=== PATIENT | male | born 1955 ===

== ENCOUNTER 2020-01-31 04:25 | Day surgery (SDC) | payer OTHER ==
[2020-01-30 10:33] VITALS: BMI 44.9
--- OUTSIDE RECORDS SUMMARY | 2020-01-31 04:29 | XMS ---
:1955 Author Organization [facility] Care Team Providers Name Role Phone Manan Colbert MD Unavailable Unavailable Darius Du MD Unavailable Unavailable Re-disclosure Warning The records that you are about to access may contain information from federally- assisted alcohol or drug abuse programs. If such information is present, then the following federally mandated warning applies: This information has been disclosed to you from records protected by federal confidentiality rules (42 CFR part 2). The federal rules prohibit you from making any further disclosure of this information unless further disclosure is expressly permitted by the written consent of the person to whom it pertains or as otherwise permitted by 42 CFR part 2. A general authorization for the release of medical or other information is NOT sufficient for this purpose. The Federal rules restrict any use of the information to criminally investigate or prosecute any alcohol or drug abuse patient.The records that you are about to access may contain highly sensitive health information, the redisclosure of which is protected by Article 27-F of the [facility] Public Health law. If you continue you may haveaccess to information: Regarding HIV / AIDS; Provided by facilities licensed or operated by the [facility] Office of Mental Health; or Provided by the [facility] Office for People With Developmental Disabilities. If such information is present, then the following [facility] mandated warning applies: This information has been disclosed to you from confidential records which are protected by state law. State law prohibits you from making any further disclosure of this information without the specific written consent of the person to whom it pertains, or as otherwise permitted by law. Any unauthorized further disclosure in violation of state law may result in a fine or penitentiary sentence or both. A general authorization for the release of medical or other information is NOT sufficient authorization for further disclosure. Advance Directives Directive Description Conductor/Engineer Body Welder Status Observation Data S ource(s) Description Advance No completed [facility] Advance No completed [facility] Allergies and Adverse Reactions Type Description Substance Reaction Status Data Source(s ) Drug allergy Sulfa (Sulfonamide Sulfa (Sulfonamide UNKNOWN [facility]) Antibiotics) Hospital Drug allergy Sulfonylureas Sulfonylureas UNKNOWN [facility] Encounters Encounter Providers Location Date Indications Data Source(s ) Emergency Attender: Darius 12/12/2019 FLANK PAIN AUT O [facility] Florian MDConsultant: 03:35:00 PM Hospi rodney Colbert MD 12/12/2019 05:32:00 PM EDT FLANK PAIN AUTO Patient discharged. Medications Medication Brand Start Product Dose Route Administrative Pharmacy [facility] Indications Reaction Description Data Name Date Form Instructions Instructions Source(s) Acetaminoph Oxycod 12/11/ TABLET 1 ORAL active [facility] 325 MG / one/Ac 2019 {Caps [place] s Oxycodone etamin 05:29: ule} Hospit al Hydrochlori ophen 00 PM de 5 MG EDT Oral Tablet [Percocet] Oxycodone/A cetaminophe n carvedilol Carved TABLET 12.5 ORAL active Whi te 12.5 MG ilol mg [place] Oral Tablet [facility] [Coreg] Carvedilol Losartan Losart TABLET 100 ORAL active [facility] Potassium an mg [place] 100 MG Oral Potass Hospit al Tablet ium [Cozaar] Naproxen TABLET [facility] Spironolact Spiron TABLET 25 mg ORAL active W meme one 25 MG olacto [place] Oral Tablet ne Hospital Insurance Providers Payer name Policy type Policy ID Covered Covered republican's Policy P pablo / Coverage republican ID relationship to [place] Inf ormation type [place] [facility] [facility] [id number] MEDICARE WELLCARE.[facility] [id number] PT [id number] MEDICAID [id number] PT [id number] Problems, Conditions, and Diagnoses Code Display Name Description Problem Type Effective Dates Data Source(s) I10 Essential (primary) I10 Diagnosis 12/12/2019 [facility] hypertension 05:27:00 PM EDT Hospita l N13.2 Hydronephrosis with N13.2 Diagnosis 12/12/2019 [facility] renal and ureteral 05:27:00 PM EDT H ospital calculous obstruction Surgeries/Procedures Procedure Description Date Indications Data Source(s) Computed tomography of 12/12/2019 [facility] abdomen and pelvis 12:00:00 AM EDT without contrast Results ID Date Data Source [id number] 01/26/2020 12:40:00 PM EDT [facility] Name Value Range Interpretation Description Data Sup porting Code Source(s) Document(s ) SARS [facility] coronavirus 2 RNA This lab was ordered by [facility] and reported by [facility]. ID Date Data Source [id number] 12/12/2019 04:09:00 PM EDT [facility] Name Value Range Interpretation Code Description Data Juana rce(s) Supporting Document(s ) Lipase 26 U/L [facility] [Enzymatic Hospital activity/vo lume] in Serum or Plasma ID Date Data Source [id number] 12/12/2019 04:09:00 PM EDT [facility] Name Value Range Interpretation Description Data Sup porting Code Source(s) Document(s ) Aspartate 37 U/L [facility] aminotransferase [place] [Enzymatic Hospital activity/volume] in Serum or Plasma ID Date Data Source [id number] 12/12/2019 04:09:00 PM EDT [facility] Name Value Range Interpretation Description Data Sup porting Code Source(s) Document(s ) Alanine 25 U/L [facility] aminotransferase [place] [Enzymatic Hospital activity/volume] in Serum or Plasma ID Date Data Source [id number] 12/12/2019 04:09:00 PM EDT [facility] Name Value Range Interpretation Description Data Sup porting Code Source(s) Document(s ) Alkaline 51 U/L [facility] phosphatase Hospital [Enzymatic activity/volume ] in Serum or Plasma ID Date Data Source [id number] 12/12/2019 04:09:00 PM EDT [facility] Name Value Range Interpretation Description Data Sup porting Code Source(s) Document(s ) Bilirubin.t 0.6 mg/dL [facility] [Mass/volum e] in Serum or Plasma ID Date Data Source [id number] 12/12/2019 04:09:00 PM EDT [facility] Name Value Range Interpretation Code Description Data Juana rce(s) Supporting Document(s ) Albumin/Glob 1.8 [facility] ulin [Mass Hospital Ratio] in Serum or Plasma ID Date Data Source [id number] 12/12/2019 04:09:00 PM EDT [facility] Name Value Range Interpretation Description Data Sup porting Code Source(s) Document(s ) Albumin 4.4 g/dL [facility] [Mass/volume Hospital ] in Serum or Plasma ID Date Data Source [id number] [facility] Interpretation Description Data Sup porting Code Source(s) Document(s ) Protein 6.8 g/dL [facility] [Mass/volume Hospital ] in Serum or Plasma ID Date Data Source [id number] 12/12/2019 04:09:00 PM [facility] Name Value Range Interpretation Description Data Sup porting Code Source(s) Document(s ) Calcium 8.2 mg/dL [facility] [Mass/volume Hospital ] in Serum or Plasma ID Date Data Source [id number] 12/12/2019 04:09:00 PM [facility] UNITS ARE IN ml/min/1.73m2.IF PATIENT IS -SUDANESE, MULTIPLY REPORTED RESULT BY 1.21. Name Value Range Interpretation Description Data Sup porting Code Source(s) Document(s ) Glomerular 47 mL/min [facility] filtration Hospital rate/1.73 sq M.predicted [Volume Rate/Area] in Serum or Plasma by Creatinine-bas ed formula (MDRD) ID Date Data Source [id number] 12/12/2019 04:09:00 PM EDT [facility] Name Value Range Interpretation Code Description Data Juana rce(s) Supporting Document(s ) Urea 16.0 [facility] nitrogen/Cre Hospital atinine [Mass Ratio] in Serum or Plasma ID Date Data Source [id number] 12/12/2019 04:09:00 PM EDT [facility] Name Value Range Interpretation Description Data Sup porting Code Source(s) Document(s ) Creatinine 1.5 mg/dL [facility] [Mass/volume] Hospital in Serum or Plasma ID Date Data Source [id number] 12/12/2019 04:09:00 PM EDT [facility] Name Value Range Interpretation Description Data Sup porting Code Source(s) Document(s ) Urea 24 mg/dL [facility] nitrogen Hospital [Mass/volume ] in Serum or Plasma ID Date Data Source [id number] 12/12/2019 04:09:00 PM EDT [facility] Value Range Interpretation Code Description Data Juana rce(s) Supporting Document(s ) Anion gap in 11 [facility] Serum or Hospital Plasma ID Date Data Source [id number] 12/12/2019 04:09:00 PM EDT [facility] Name Value Range Interpretation Description Data Sup porting Code Source(s) Document(s ) Carbon 30 mmol/L [facility] dioxide, Hospital total [Moles/volu me] in Serum or Plasma ID Date Data Source [id number] 12/12/2019 04:09:00 PM EDT [facility] Name Value Range Interpretation Description Data Sup porting Code Source(s) Document(s ) Chloride 103 [facility] [Moles/volum mmol/L Hospital e] in Serum or Plasma ID Date Data Source [id number] 12/12/2019 04:09:00 PM EDT [facility] Name Value Range Interpretation Description Data Sup porting Code Source(s) Document(s ) Potassium 4.7 [facility] [Moles/volume mmol/L Hospital ] in Serum or Plasma ID Date Data Source [id number] 12/12/2019 04:09:00 PM EDT [facility] Name Value Range Interpretation Description Data Sup porting Code Source(s) Document(s ) Sodium 139 mmol/L [facility] [Moles/volu Hospital hi] in Serum or Plasma ID Date Data Source [id number] 12/12/2019 04:09:00 PM EDT [facility] Name Value Range Interpretation Description Data Sup porting Code Source(s) Document(s ) Glucose 120 mg/dL [facility] [Mass/volume Hospital ] in Serum or Plasma ID Date Data Source [id number] 12/12[facility]2019 [facility]09[facility] Range Interpretation Code Description Data Juana rce(s) Supporting Document(s ) URINE 0-5 [facility] CASTS ID Date Data Source [id number] 12/12/2019 04:09:00 [facility] Value Range Interpretation Description Data Sup porting Code Source(s) Document(s ) Erythrocytes 0-3 [facility] [#/area] in /[HPF] Hospital Urine sediment by Automated count ID Date Data Source [id number] 12/12/2019 04:09:00 [facility] Value Range Interpretation Description Data Sup porting Code Source(s) Document(s ) Leukocytes NEGATIVE [facility] [#/area] in /[HPF] Hospital Urine sediment by Automated count ID Date Data Source [id number] 12/12/2019 04:09:00 [facility] Value Range Interpretation Description Data Sup porting Code Source(s) Document(s ) Leukocyte NEGATIVE [facility] Hospital [Presence] in Urine by Test strip ID Date Data Source [id number] 12/12/2019 04:09:00 PM EDT [facility] Name Value Range Interpretation Description Data Sup porting Code Source(s) Document(s ) URINE NEGATIVE [facility] NITRITES Hospital ID Date Data Source [id number] 12/12/2019 04:09:00 PM EDT [facility] Name Value Range Interpretation Description Data Sup porting Code Source(s) Document(s ) Erythrocytes NEGATIVE [facility] [#/volume] in Hospital Urine by Test strip ID Date Data Source [id number] 12/12/2019 04:09:00 PM EDT [facility] Name Value Range Interpretation Code Description Data Juana rce(s) Supporting Document(s ) Bilirubin. NEGATIVE [facility] total Hospital [Presence] in Urine by Test strip ID Date Data Source [id number] 12/12/2019 04:09:00 PM EDT [facility] Name Value Range Interpretation Description Data Sup porting Code Source(s) Document(s ) Urobilinogen 0.2 [facility] [Units/volume] mg/dL Hospital in Urine by Test strip ID Date Data Source [id number] 12/12/2019 04:09:00 PM EDT [facility] Name Value Range Interpretation Description Data Sup porting Code Source(s) Document(s ) Ketones NEGATIVE [facility] [Mass/volume Hospital ] in Urine by Test strip ID Date Data Source [id number] 12/12/2019 04:09:00 PM EDT [facility] Name Value Range Interpretation Description Data Sup porting Code Source(s) Document(s ) Glucose NEGATIVE [facility] [Mass/volume Hospital ] in Urine by Test strip ID Date Data Source [id number] 12/12/2019 04:09:00 PM EDT [facility] Name Value Range Interpretation Code Description Data Juana rce(s) Supporting Document(s ) Protein TRACE [facility] [Presence] Hospital in Urine by Test strip ID Date Data Source [id number] 12/12/2019 04:09:00 PM EDT [facility] Name Value Range Interpretation Code Description Data Juana rce(s) Supporting Document(s ) pH of Urine 6.0 [facility] by Test Hospital strip ID Date Data Source [id number] 12/12/2019 04:09:00 PM EDT [facility] Name Value Range Interpretation Code Description Data Supporting Source(s) Document(s ) Specific 1.019 [facility] gravity of Hospital Urine by Test strip ID Date Data Source [id number] 12/12/2019 04:09:00 PM EDT [facility] Name Value Range Interpretation Description Data Sup porting Code Source(s) Document(s ) Clarity in Urine CLEAR [facility] by Refractometry Hospital automated ID Date Data Source [id number] 12/12/2019 04:09:00 PM EDT [facility] Name Value Range Interpretation Code Description Data Juana rce(s) Supporting Document(s ) Color of YELLOW [facility] Urine Hospital ID Date Data Source [id number] 12/12/2019 04:09:00 PM EDT [facility] Name Value Range Interpretation Description Data Sup porting Code Source(s) Document(s ) Differential AUTOMATED [facility] cell count Hospital method - Blood ID Date Data Source [id number] 12/12/2019 04:09:00 PM EDT [facility] Name Value Range Interpretation Description Data Sup porting Code Source(s) Document(s ) Immature 0.03 [facility] granulocytes 10*3/uL Hospital [#/volume] in Blood by Automated count ID Date Data Source [id number] 12/12/2019 04:09:00 PM EDT [facility] Name Value Range Interpretation Description Data Sup porting Code Source(s) Document(s ) Basophils 0.02 [facility] [#/volume] in 10*3/uL Hospital Blood by Automated count ID Date Data Source [id number] 12/12/2019 04:09:00 PM EDT [facility] Name Value Range Interpretation Description Data Sup porting Code Source(s) Document(s ) Eosinophils 0.03 [facility] [#/volume] in 10*3/uL Hospital Blood by Automated count ID Date Data Source [id number] 12/12/2019 04:09:00 PM EDT [facility] Value Range Interpretation Description Data Sup porting Code Source(s) Document(s ) Monocytes 0.76 [facility] [#/volume] in 10*3/uL Hospital Blood by Automated count ID Date Data Source [id number] 12/12/2019 04:09:00 PM EDT [facility] Value Range Interpretation Description Data Sup porting Code Source(s) Document(s ) Lymphocytes 1.62 [facility] [#/volume] in 10*3/uL Hospital Blood by Automated count ID Date Data Source [id number] 12/12/2019 04:09:00 PM EDT [facility] Value Range Interpretation Description Data Sup porting Code Source(s) Document(s ) Neutrophils 5.62 [facility] [#/volume] in 10*3/uL Hospital Blood by Automated count ID Date Data Source [id number] 12/12/2019 04:09:00 PM EDT [facility] Value Range Interpretation Description Data Sup porting Code Source(s) Document(s ) Nucleated 0.0 % [facility] erythrocytes/10 Hospital 0 leukocytes [Ratio] in Blood by Automated count ID Date Data Source [id number] 12/12/2019 04:09:00 PM EDT [facility] Name Value Range Interpretation Description Data Sup porting Code Source(s) Document(s ) Immature 0.4 % [facility] granulocytes/10 Hospital 0 leukocytes in Blood by Automated count ID Date Data Source [id number] 12/12/2019 04:09:00 PM EDT [facility] Value Range Interpretation Description Data Sup porting Code Source(s) Document(s ) Basophils/100 0.2 % [facility] leukocytes in Hospital Blood by Automated count ID Date Data Source [id number] 12/12/2019 04:09:00 PM EDT [facility] Value Range Interpretation Description Data Sup porting Code Source(s) Document(s ) Eosinophils/100 0.4 % [facility] leukocytes in Hospital Blood by Automated count ID Date Data Source [id number] 12/12/2019 04:09:00 PM EDT [facility] Value Range Interpretation Description Data Sup porting Code Source(s) Document(s ) Monocytes/100 9.4 % [facility] leukocytes in Hospital Blood by Automated count ID Date Data Source [id number] 12/12/2019 04:09:00 PM EDT [facility] Value Range Interpretation Description Data Sup porting Code Source(s) Document(s ) Lymphocytes/10 20.0 % [facility] 0 leukocytes Hospital in Blood by Automated count ID Date Data Source [id number] 12/12/2019 04:09:00 PM EDT [facility] Value Range Interpretation Description Data Sup porting Code Source(s) Document(s ) Neutrophils/10 69.6 % [facility] 0 leukocytes Hospital in Blood by Automated count ID Date Data Source [id number] 12/12/2019 04:09:00 PM EDT [facility] Value Range Interpretation Description Data Sup porting Code Source(s) Document(s ) Platelet mean 9.5 fL [facility] volume Hospital [Entitic volume] in Blood by Automated count ID Date Data Source [id number] 12/12/2019 04:09:00 PM EDT [facility] Value Range Interpretation Description Data Sup porting Code Source(s) Document(s ) Platelets 214 [facility] [#/volume] in 10*3/uL Hospital Blood by Automated count ID Date Data Source [id number] 12/12/2019 04:09:00 PM EDT [facility] Value Range Interpretation Description Data Sup porting Code Source(s) Document(s ) Erythrocyte 12.9 % [facility] Hospital width [Ratio] by Automated count ID Date Data Source [id number] 12/12/2019 04:09:00 PM EDT [facility] Value Range Interpretation Description Data Sup porting Code Source(s) Document(s ) Erythrocyte mean 34.6 [facility] corpuscular g/dL Hospital hemoglobin concentration [Mass/volume] by Automated count ID Date Data Source [id number] 12/12/2019 04:09:00 PM [facility] Value Range Interpretation Description Data Sup porting Code Source(s) Document(s ) Erythrocyte 32.2 pg [facility] corpuscular hemoglobin [Entitic mass] by Automated count ID Date Data Source [id number] 12/12/2019 04:09:00 PM [facility] Value Range Interpretation Description Data Sup porting Code Source(s) Document(s ) Erythrocyte 92.9 fL [facility] corpuscular volume [Entitic volume] by Automated count ID Date Data Source [id number] 12/12/2019 04:09:00 PM EDT [facility] Name Value Range Interpretation Description Data Sup porting Code Source(s) Document(s ) Hematocrit 34.1 % [facility] [Volume Hospital Fraction] of Blood by Automated count ID Date Data Source [id number] 12/12/2019 04:09:00 PM [facility] Name Value Range Interpretation Description Data Sup porting Code Source(s) Document(s ) Hemoglobin 11.8 g/dL [facility] [Mass/volume] Hospital in Blood ID Date Data Source [id number] 12/12/2019 04:09:00 PM [facility] Name Value Range Interpretation Description Data Sup porting Code Source(s) Document(s ) Erythrocytes 3.67 [facility] [#/volume] in 10*6/uL Hospital Blood by Automated count ID Date Data Source [id number] [facility]/12[facility] Interpretation Description Data Sup porting Code Source(s) Document(s ) Leukocytes 8.1 [facility] [#/volume] in 10*3/uL Hospital Blood by Automated count Procedure Social History Code Duration Value Status Description Data Source(s ) Smoking Unknown if ever completed Unknown if ever [facility] [place] smoked smoked Hospital Vital Signs ID Date Data Source UNK Name Value Range Interpretation Code Description Data Source(s) Diastolic blood 65 mm[Hg] 65 mm[Hg] [facility] pressure [facility] Systolic blood 120 mm[Hg] 120 mm[Hg] [facility] Respiratory rate 18 /min 18 /min [facility] Heart rate 71 /min 71 /min [facility] Body temperature 36.70660 36.48272 [facility] Hospital Body temperature 98.2 [degF] 98.2 [degF] [facility] Body mass index 44.0 kg/m2 44.0 kg/m2 [facility] (BMI) [Ratio] Hospital Body weight 340.72 340.72 [lb_av] [facility] [lb_av] Hospital
[2020-01-31] MEDS ORDERED: MIDAZOLAM HCL 2 MG/2 ML SINGLE DOSE VIAL ONE (12:02)
[2020-01-31] MEDS ORDERED: LIDOCAINE HCL/PF 2% SDV 5ML VIAL ONE (12:16)
[2020-01-31] MEDS ORDERED: GLYCOPYRROLATE 0.2 MG/1 ML VIAL ONE (12:16)
[2020-01-31] MEDS ORDERED: ceFAZolin SODIUM 1 GM VIAL ONE (12:16)
[2020-01-31] MEDS ORDERED: KETAMINE HCL 200 MG/20 ML VIAL ONE (12:17)
[2020-01-31] MEDS ORDERED: ceFAZolin SODIUM 1 GM VIAL IVPB ONE (12:21)
--- NOTE | 2020-01-31 12:42 | OP ---
Operative Note - Note: Operative Date: 01/31/20 Pre-Operative Diagnosis: LT. RENAL STONES Operation: LT. ESWL Findings: MULTIPLE LEFT RENAL STONES Post-Operative Diagnosis: Same as Pre-op Surgeon: Sreekanth Fang Anesthesia: General Specimens Removed: NONE Estimated Blood Loss (mls): 0 Instrument used (Debridements only): 0 Drains & Tubes with Location: 0 Drains, Volume Out (mls): 0 Blood Volume Replaced (mls): 0 Fluid Volume Replaced (mls): 0 Operative Report Dictated: Yes
--- NOTE | 2020-01-31 12:51 | HP ---
DATE OF ADMISSION: 01/31/2020 Patient is a 64-year-old male with history of left kidney stones, had several episodes of renal colic, seen in [facility] Emergency Room. A CAT scan there revealed left hydronephrosis with multiple left renal stones. Patient does have history of coronary artery disease and hypertension. Presently, he is on a beta-alma as well as losartan. PHYSICAL EXAMINATION: General: A slightly overweight, adult male. Abdomen: Soft. There is left CVA tenderness, left lower quadrant tenderness. Genitalia: Atraumatic. Testes are normal in size and consistency. Prostate: 2+, smooth, benign, and nontender. LABORATORY DATA: His urinalysis is heme positive. An ultrasound of the kidneys revealed left moderate hydronephrosis with multiple stones in the renal pelvis, ranging between 0.6 and 0.9 mm in diameter. IMPRESSION AT PRESENT: Left nephrolithiasis, left renal colic, left hydronephrosis, microscopic hematuria. PLAN: Left extracorporeal shock wave lithotripsy. Patient will also undergo stone workup after the procedure. Paul [id number]
--- NOTE | 2020-01-31 13:10 | OP ---
DATE OF OPERATION: 01/31/2020 PREOPERATIVE DIAGNOSIS: Multiple left renal stones. POSTOPERATIVE DIAGNOSIS: Multiple left renal stones. OPERATIVE PROCEDURE: Left extracorporeal shock wave lithotripsy. ANESTHESIA: General. DESCRIPTION OF PROCEDURE: On the above-stated anesthesia, patient is prepped and draped in the usual manner. Stones were localized using ultrasound as well as x-ray. Multiple stones were found in the left renal pelvis, therefore the patient received 2500 shocks at a power of 20, had a benign and uneventful postoperative course. Returned to the recovery room in good condition. Paul [id number]
[2020-01-31 14:46] VITALS: BP 110/54; PULSE 75; TEMP 97.1
== END 2020-01-31 14:05 | disposition home or self-care (01) ==
LOC: JASU-SURG 04:25
PROVIDERS: ATTEND Urology
PROC: 0TF4XZZ Fragmentation in Left Kidney Pelvis, External Approach (ICD-10-PCS; principal; 2020-01-31 12:00)
DX: N20.0 Calculus of kidney (principal)